=== PATIENT | female | born 1985 | race Caucasian/White ===

== ENCOUNTER → 2018-08-24 | Outpatient (CLI) | payer BC ==
--- NOTE | 2018-08-25 11:22 | MR ---
MR angiogram of the pelvis with and without contrast HISTORY: Localized edema lower extremity Multiplanar multisequence and postcontrast images obtained through the pelvis following 12.5 cc Gadav ist IV. Three-dimensional reconstructions performed on an alternate workstation The distal abdominal aorta, common iliac, internal iliac and external iliac arteries are patent. Rain l arteries, superior mesenteric artery, celiac axis, inferior mesenteric arteries are patent without stenosis. Left and right common femoral veins, external iliac veins, internal iliac veins are patent. Relative narrowing of the common iliac vein on the left likely represents normal variant. Inferior v ronald cava is patent. Hepatic veins, renal veins are patent. Uterus shows a lobular appearance, postcontrast enhancement suspected in the myometrium on the left c orresponding to 15 mm focus shows low signal on T2, isointense signal on T1-weighted images likely fi broid. Cystic foci associated with bilateral ovaries, largest on the right measures 2.3 cm. Nabothian cysts are noted in the cervix. No free fluid or pelvic adenopathy. IMPRESSION: Patent vasculature as described with additional findings above. Probable fibroid uterus. Right ovarian cyst.
== END | disposition home or self-care (01) ==
LOC: RADMRIMAIN 08:59
PROVIDERS: ATTEND Family Medicine
DX: N83.201 Unspecified ovarian cyst, right side (principal); N88.8 Other specified noninflammatory disorders of cervix uteri; N83.202 Unspecified ovarian cyst, left side
CPT/HCPCS: 72198; A9585